=== PATIENT | female | born 1975 | race African-American/Black ===

== ENCOUNTER 2017-08-05 12:34 | Observation (INO) ==
[2017-08-05 14:45] LABS: Basophils % 0.3 %; Eosinophils % 0.6 %; Hematocrit 46.5 % (35.3-44.9); Hemoglobin 15.1 g/dL (11.5-15.4); Immature Granulocytes % 0.2 % (0-4); Lymphocytes # 0.7 K/mcL (0.6-4.6); Mean Corpuscular HGB Conc 32.5 g/dL (31.6-35.5); Mean Corpuscular Hemoglobin 30.1 pg (28.0-33.3); Mean Corpuscular Volume 92.6 fL (83.0-100.0); Mean Platelet Volume 8.8 fL (9.4-12.4); Monocytes # 0.4 K/mcL (0.0-1.3); Monocytes % 6.3 %; Platelet Count 282 K/mcL (140-400); Red Blood Count 5.02 M/mcL (3.82-4.97); Red Cell Distribution Width 12.2 % (11.5-14.5); Segmented Neutrophils % 80.6 %
[2017-08-05 14:50] LABS: Prothrombin Time 10.2 Seconds (9.4-12.1)
[2017-08-05 14:52] LABS: Activated Partial Thrombo Time 28.8 Seconds (26.0-36.0)
[2017-08-05 15:05] LABS: BUN/Creatinine Ratio 18 (6-26); Blood Urea Nitrogen 13 mg/dL (6-20); Calcium 9.2 mg/dL (8.6-10.3); Carbon Dioxide 26 mEq/L (23-29); Chloride 106 mEq/L (98-107); Glucose 90 mg/dL (70-105); Osmolality,Calculated 280 (280-300); Potassium 3.9 mEq/L (3.5-5.1); Sodium 135 mEq/L (136-145); eGFR For African Americans > 60 (> 60); eGFR For Non-African Americans > 60 (> 60)
--- NOTE | 2017-08-05 15:12 | Emergency Department Note ---
Disposition Clinical Impression: Unstable angina Disposition: Admitted As Inpatient Condition: Fair General Adult HPI - General Chief complaint: ED Chest Pain Stated complaint: C/P Time Seen by Provider: 08/05/17 15:01 Source: patient Limitations: no limitations - History of Present Illness Pain Scale: 5 - Related Data Home Medications Medication Instructions Recorded Confirmed hydrOXYzine HCl [Hydroxyzine HCl] 25 mg PO HS PRN 08/05/17 08/05/17 Allergies Allergy/AdvReac Type Severity Reaction Status Date / Time Amoxicillin AdvReac Hives Verified 08/05/17 12:40 Past Medical History - Past Medical History Medical history: Reports: no medical history Psychiatric history: Reports: no psych history - Social History Smoking Status: Current every day smoker Smokeless Tobacco Status: No Alcohol use: Reports: none Drug use: Reports: none Physical Exam - General Limitations: no limitations General appearance: alert, in no apparent distress Course Vital Signs Temperature 98.6 F 08/05/17 12:35 Pulse Rate 89 08/05/17 12:35 Respiratory Rate 18 08/05/17 12:35 Blood Pressure 119/73 08/05/17 12:35 O2 Sat by Pulse Oximetry 100 08/05/17 12:35 Temperature 98.8 F 08/05/17 20:30 Pulse Rate 90 08/05/17 20:30 Respiratory Rate 14 08/05/17 20:30 Blood Pressure 112/77 08/05/17 20:30 O2 Sat by Pulse Oximetry 96 08/05/17 20:30 Oxygen Delivery Oxygen Delivery Room Air Medical Decision Making - Lab Data Result diagrams: 08/05/17 14:33 08/05/17 14:33 Lab Results 08/05/17 08/05/17 08/05/17 Range/Units 14:33 14:33 14:33 WBC 6.2 (4.3-11.1) K/mcL RBC 5.02 H (3.82-4.97) M/mcL Hgb 15.1 (11.5-15.4) g/dL Hct 46.5 H (35.3-44.9) % MCV 92.6 (83.0-100.0) fL MCH 30.1 (28.0-33.3) pg MCHC 32.5 (31.6-35.5) g/dL RDW 12.2 (11.5-14.5) % Plt Count 282 (140-400) K/mcL MPV 8.8 L (9.4-12.4) fL Immature Gran % 0.2 (0-4) % Seg Neutrophils % 80.6 % Lymphocytes % 12.0 % Monocytes % 6.3 % Eosinophils % 0.6 % Basophils % 0.3 % Neutrophils # 5.0 (1.6-8.9) K/mcL Lymphocytes # 0.7 (0.6-4.6) K/mcL Monocytes # 0.4 (0.0-1.3) K/mcL Eosinophils # 0.0 (0.0-0.6) K/mcL Basophils # 0.0 (0.0-0.2) K/mcL PT 10.2 (9.4-12.1) Seconds INR 1.0 APTT 28.8 (26.0-36.0) Seconds Sodium 135 L (136-145) mEq/L Potassium 3.9 (3.5-5.1) mEq/L Chloride 106 (98-107) mEq/L Carbon Dioxide 26 (23-29) mEq/L BUN 13 (6-20) mg/dL Creatinine 0.73 (0.60-1.20) mg/dL Est GFR ( Amer) > 60 (> 60) Est GFR (Non-Af Amer) > 60 (> 60) BUN/Creatinine Ratio 18 (6-26) Glucose 90 (70-105) mg/dL Calculated Osmolality 280 (280-300) Calcium 9.2 (8.6-10.3) mg/dL Troponin I (< 0.04) ng/mL 08/05/17 Range/Units 14:33 WBC (4.3-11.1) K/mcL RBC (3.82-4.97) M/mcL Hgb (11.5-15.4) g/dL Hct (35.3-44.9) % MCV (83.0-100.0) fL MCH (28.0-33.3) pg MCHC (31.6-35.5) g/dL RDW (11.5-14.5) % Plt Count (140-400) K/mcL MPV (9.4-12.4) fL Immature Gran % (0-4) % Seg Neutrophils % % Lymphocytes % % Monocytes % % Eosinophils % % Basophils % % Neutrophils # (1.6-8.9) K/mcL Lymphocytes # (0.6-4.6) K/mcL Monocytes # (0.0-1.3) K/mcL Eosinophils # (0.0-0.6) K/mcL Basophils # (0.0-0.2) K/mcL PT (9.4-12.1) Seconds INR APTT (26.0-36.0) Seconds Sodium (136-145) mEq/L Potassium (3.5-5.1) mEq/L Chloride (98-107) mEq/L Carbon Dioxide (23-29) mEq/L BUN (6-20) mg/dL Creatinine (0.60-1.20) mg/dL Est GFR ( Amer) (> 60) Est GFR (Non-Af Amer) (> 60) BUN/Creatinine Ratio (6-26) Glucose (70-105) mg/dL Calculated Osmolality (280-300) Calcium (8.6-10.3) mg/dL Troponin I < 0.03 (< 0.04) ng/mL Attestation Statement - Attestation Attestation: I examined this patient and my medical decision-making was reviewed with the Resident Physician. I agree with the documented findings, disposition and treatment plan as described except to the extent set forth below. [id number] time provided in conjunction with the resident physician Dr. Maddox Patient arrives complaining of chest discomfort. She appears in no acute distress on exam. Labs and chest x-ray result reviewed by me. ECG has some nonspecific ST segment abnormalities including inverted T waves the patient has no studies for comparison
--- NOTE | 2017-08-05 15:41 | Emergency Department Note ---
Disposition Clinical Impression: Unstable angina Disposition: Admitted As Inpatient Condition: Fair Time of Disposition: 20:56 Chest Pain HPI - General Chief Complaint: ED Chest Pain Stated Complaint: C/P Time Seen by Provider: 08/05/17 15:01 Source: patient Limitations: no limitations Vital Signs Reviewed: Yes Nursing Notes Reviewed: Yes - History of Present Illness HPI Narrative: 42-year-old female complains of chest pain and started 4 hours ago. Patient states at 1130 hrs. while sitting in her recliner she had sudden onset of sharp chest pain left chest wall. Patient stated the pain lasted 30 minutes and then went away on its own. He states pain came back 2 hours later and continued up until she got to the emergency department. Patient states she has had some mild shortness of breath and pain but no diaphoresis rate or radiation of pain to her neck or arms. She did have radiation of pain to the right lateral chest wall. Patient denies any hemoptysis, hormone replacement therapy, any recent surgeries , prior history of DVT or any recent trauma. Patient denies a cardiac history. Severity scale (1-10): 4 - Related Data Home Medications Medication Instructions Recorded Confirmed hydrOXYzine HCl [Hydroxyzine HCl] 25 mg PO HS PRN 08/05/17 08/05/17 Allergies Allergy/AdvReac Type Severity Reaction Status Date / Time Amoxicillin AdvReac Hives Verified 08/05/17 12:40 All systems ED: reviewed and negative except as stated. Review of Systems: As Per HPI Constitutional: Denies: fever, chills, weakness ENT ED: Denies: congestion Cardiovascular: Reports: chest pain, palpitations Respiratory: Reports: dyspnea. Denies: cough, wheezes Gastrointestinal: Denies: abdominal pain, nausea, vomiting, diarrhea Chest Pain PMH - Past Medical History Medical history: Reports: no medical history Psychiatric history: Reports: no psych history - Social History Smoking Status: Current every day smoker Alcohol use: Reports: none Drug use: Reports: none Physical Exam Vital Signs Temperature 98.6 F 08/05/17 12:35 Pulse Rate 89 08/05/17 12:35 Respiratory Rate 18 08/05/17 12:35 Blood Pressure 119/73 08/05/17 12:35 O2 Sat by Pulse Oximetry 100 08/05/17 12:35 Temperature 98.6 F 08/05/17 12:35 Pulse Rate 95 08/05/17 15:15 Respiratory Rate 16 08/05/17 15:15 Blood Pressure 122/85 08/05/17 15:15 O2 Sat by Pulse Oximetry 96 08/05/17 15:15 Oxygen Delivery Oxygen Delivery Room Air CONSTITUTIONAL: Well-appearing; well-nourished; A&O X 3, in no apparent distress HEAD: Normocephalic; atraumatic EYES: PERRL, no scleral icterus NOSE: The nose is normal in appearance without rhinorrhea NECK: No JVD or distended neck veins RESP: Normal chest excursion with respiration; breath sounds clear and equal bilaterally; no wheezes, rhonchi, or rales CARD: Regular rhythm, without murmurs, rub or gallop ABD: Non-distended; non-tender, soft, without rigidity, rebound or guarding,no pulsatile mass CHEST: No pain with palpation SKIN: Normal for age and race; warm and dry without diaphoresis ; no apparent lesions EXTREMITIES: Pulses are 2 plus and equal times 4 extremities, no peripheral edema or calf muscle pain - General Limitations: no limitations General appearance: alert, in no apparent distress Course Vital Signs Temperature 98.6 F 08/05/17 12:35 Pulse Rate 89 08/05/17 12:35 Respiratory Rate 18 08/05/17 12:35 Blood Pressure 119/73 08/05/17 12:35 O2 Sat by Pulse Oximetry 100 08/05/17 12:35 Temperature 98.8 F 08/05/17 20:30 Pulse Rate 90 08/05/17 20:30 Respiratory Rate 14 08/05/17 20:30 Blood Pressure 112/77 08/05/17 20:30 O2 Sat by Pulse Oximetry 96 08/05/17 20:30 Oxygen Delivery Oxygen Delivery Room Air Chest Pain - MDM Narrative Medical decision making narrative: Patient's recent history of chest pain is concerning for unstable angina, ACS/DC , PE (PERC negative: No pain or swelling of the lower extremities, casts or splints of the lower extremities, prolonged immobilization or lower extremity injury. No history of cancer, hemoptysis, hormone therapy, blood clotting problems or recent surgery). Patient has no prior cardiac workups. Patient has EKG abdomen abnormalities for T-wave inversion across all leads and no previous EKG for comparison. Patient's chest x-ray and labs are unremarkable for abnormalities. He is a smoker but has no other known risk factors at this time. Patient has a heart score of 3 Patient's currently not in any pain and is doing well. Patient accepts this is for admission for trending of troponins and cardiac evaluation. Dr. Sandoval the hospitalist who accepted the patient for admission in stable condition to a telemetry bed at 1550 hrs. - Lab Data Lab results reviewed: Yes I reviewed the patient's lab results. Lab results narrative: Short CBC 08/05/17 Range/Units 14:33 WBC 6.2 (4.3-11.1) K/mcL Hgb 15.1 (11.5-15.4) g/dL Hct 46.5 H (35.3-44.9) % Plt Count 282 (140-400) K/mcL Neutrophils # 5.0 (1.6-8.9) K/mcL BMP 08/05/17 Range/Units 14:33 Sodium 135 L (136-145) mEq/L Potassium 3.9 (3.5-5.1) mEq/L Chloride 106 (98-107) mEq/L Carbon Dioxide 26 (23-29) mEq/L BUN 13 (6-20) mg/dL Creatinine 0.73 (0.60-1.20) mg/dL Glucose 90 (70-105) mg/dL Calcium 9.2 (8.6-10.3) mg/dL Cardiac Enzymes 08/05/17 Range/Units 14:33 Troponin I < 0.03 (< 0.04) ng/mL Result diagrams: 08/05/17 14:33 08/05/17 14:33 Lab Results 08/05/17 08/05/17 08/05/17 Range/Units 14:33 14:33 14:33 WBC 6.2 (4.3-11.1) K/mcL RBC 5.02 H (3.82-4.97) M/mcL Hgb 15.1 (11.5-15.4) g/dL Hct 46.5 H (35.3-44.9) % MCV 92.6 (83.0-100.0) fL MCH 30.1 (28.0-33.3) pg MCHC 32.5 (31.6-35.5) g/dL RDW 12.2 (11.5-14.5) % Plt Count 282 (140-400) K/mcL MPV 8.8 L (9.4-12.4) fL Immature Gran % 0.2 (0-4) % Seg Neutrophils % 80.6 % Lymphocytes % 12.0 % Monocytes % 6.3 % Eosinophils % 0.6 % Basophils % 0.3 % Neutrophils # 5.0 (1.6-8.9) K/mcL Lymphocytes # 0.7 (0.6-4.6) K/mcL Monocytes # 0.4 (0.0-1.3) K/mcL Eosinophils # 0.0 (0.0-0.6) K/mcL Basophils # 0.0 (0.0-0.2) K/mcL PT 10.2 (9.4-12.1) Seconds INR 1.0 APTT 28.8 (26.0-36.0) Seconds Sodium 135 L (136-145) mEq/L Potassium 3.9 (3.5-5.1) mEq/L Chloride 106 (98-107) mEq/L Carbon Dioxide 26 (23-29) mEq/L BUN 13 (6-20) mg/dL Creatinine 0.73 (0.60-1.20) mg/dL Est GFR ( Amer) > 60 (> 60) Est GFR (Non-Af Amer) > 60 (> 60) BUN/Creatinine Ratio 18 (6-26) Glucose 90 (70-105) mg/dL Calculated Osmolality 280 (280-300) Calcium 9.2 (8.6-10.3) mg/dL Troponin I (< 0.04) ng/mL 08/05/17 Range/Units 14:33 WBC (4.3-11.1) K/mcL RBC (3.82-4.97) M/mcL Hgb (11.5-15.4) g/dL Hct (35.3-44.9) % MCV (83.0-100.0) fL MCH (28.0-33.3) pg MCHC (31.6-35.5) g/dL RDW (11.5-14.5) % Plt Count (140-400) K/mcL MPV (9.4-12.4) fL Immature Gran % (0-4) % Seg Neutrophils % % Lymphocytes % % Monocytes % % Eosinophils % % Basophils % % Neutrophils # (1.6-8.9) K/mcL Lymphocytes # (0.6-4.6) K/mcL Monocytes # (0.0-1.3) K/mcL Eosinophils # (0.0-0.6) K/mcL Basophils # (0.0-0.2) K/mcL PT (9.4-12.1) Seconds INR APTT (26.0-36.0) Seconds Sodium (136-145) mEq/L Potassium (3.5-5.1) mEq/L Chloride (98-107) mEq/L Carbon Dioxide (23-29) mEq/L BUN (6-20) mg/dL Creatinine (0.60-1.20) mg/dL Est GFR ( Amer) (> 60) Est GFR (Non-Af Amer) (> 60) BUN/Creatinine Ratio (6-26) Glucose (70-105) mg/dL Calculated Osmolality (280-300) Calcium (8.6-10.3) mg/dL Troponin I < 0.03 (< 0.04) ng/mL - Radiology Data Radiology results reviewed: Yes I reviewed the patient's radiology results. Chest X-Ray 08/05/17 12:40 IMPRESSION: No acute cardiopulmonary disease. D/ / Gurvinder Silva MD / Gurvinder Silva MD Interpreting Provider: Gurvinder Silva MD - EKG Data EKG attestation: Yes I reviewed and interpreted this EKG. EKG results narrative: EKG taken 08/05/2017 at 1241 hrs. shows sinus rhythm at a rate of 93 beats minute with T-wave inversions across all leads. No acute ST elevations or depressions in any leads, no QS widening or QT prolongation and no previous ekg for comparison. Heart Score - Score History: Moderately Suspicious EKG: Non Specific repolarisation Disturbance Age: Less than 45 Risk Factors: 1-2 risk factors Troponin: Less than normal limit HEART Score Total: 3
[2017-08-05] MEDS ORDERED: Naloxone 0.4 MG/ML INJ IVP PRN (16:19)
[2017-08-05] MEDS ORDERED: Aspirin 325 MG TABLET PO ONE (16:21)
[2017-08-05] MEDS ORDERED: Nitroglycerin 0.4 MG TAB.SUBL SL PRN (16:22)
[2017-08-05] MEDS ORDERED: hydrOXYzine pamoate 25 MG CAPSULE PO PRN (16:23)
--- NOTE | 2017-08-05 16:39 | Internal Med History&Physical ---
Date of Encounter: 08/05/17 Time of Encounter: 16:34 Assessment and Plan (1) Chest pain Current visit: Yes Status: Acute Resolved at this time will obtain serial TNI 2D echo to rule out WMA given history of drug abuse HEART score: 1 (smoker) nuclear stress test in am NPO after midnight tele monitoring ASA, Lipitor (to be given in the ER) nitroglycerin SL Prn chest pain f/u lipid panel f/u urine tox screen Qualifiers: Chest pain type: unspecified Qualified Code(s): R07.9 - Chest pain, unspecified (2) Polysubstance abuse Current visit: Yes Status: Chronic pt reports of being in remission for the last five months states she was in a recovery home at the time of onset of chest pain denies any recent heroin or cocaine use will obtain urine tox screen (3) Tobacco abuse Current visit: Yes Status: Chronic smoking cessation counseling provided pt not ready to quit nicotine supplementation provided (4) DVT prophylaxis Current visit: Yes Status: Acute heparin SQ Internal Medicine - H&P: HPI Chief complaint: chest pain Admitted From: Home Plans for Post Hospital Care: Home History of present illness: Ms. Herzog is a 42 year old female with PMH of tobacco abuse and polysubstance abuse (heroin and cocaine-currently in recovery) presented to the ER for acute onset localized substernal sharp chest pain. Pt states she was resting in chair when the pain came about and she is currently in a recovery program for addiction (hx of heroin and cocaine abuse). The persisted for 30 minutes which prompted her visit to the ER. She denied any alleviating or exacerbating factors. Reports of the pain spontaneously resolving upon her arrival to the ER. At this time she is resting in bed and denies any pain, sob, or discomfort. She denied any family history of heart disease. Past Med Surg Social Fam HX - Past Medical History Medical history: no medical history Psychiatric history: no psych history - Social History Smoking Status: Current every day smoker Smokeless Tobacco Status: No Alcohol use: none Drug use: none Internal Medicine - H&P: Meds hydrOXYzine HCl [Hydroxyzine HCl] 25 mg PO HS PRN 08/05/17 [History] 3 Allergy/AdvReac Type Severity Reaction Status Date / Time Amoxicillin AdvReac Hives Verified 08/05/17 12:40 All Systems PM: A 10-system review of systems was performed and is negative for pertinent findings except as documented above in the HPI. - Constitutional Constitutional: as per HPI - Constitutional Vitals: Temp Pulse Resp BP Pulse Ox 98.6 F 95 16 122/85 96 08/05/17 12:35 08/05/17 15:15 08/05/17 15:15 08/05/17 15:15 08/05/17 15:15 General appearance: Present: A&O X 3, no acute distress, answers questions appropriately - Head Head exam: Present: atraumatic, normocephalic - Eye Eye exam: Present: conjuntiva pink, sclera anicteric - Respiratory Respiratory exam: Present: CTAB. Absent: accessory muscle use, rales, rhonchi, wheezes - Cardiovascular Cardiovascular exam: Present: RRR, +S1, +S2. Absent: diastolic murmur, gallop, rubs, systolic murmur - GI/Abdominal GI/Abdominal exam: Present: normal bowel sounds, soft, no peritoneal signs. Absent: distended, tenderness - Extremities Exam Extremities exam: Present: warm, radial pulses palpable and symmetrical. Absent : calf tenderness, cyanotic, pedal edema - Neurological Exam Neurological exam: Present: alert, oriented X3 - Psychiatric Psychiatric exam: Present: normal affect, normal mood Internal Med - H&P Results - Labs CBC & Chem 7: 08/05/17 14:33 08/05/17 14:33
[2017-08-05] MEDS ORDERED: Acetaminophen 325 MG TABLET PO PRN (16:40)
[2017-08-05] MEDS: *HR* Heparin 5,000 UNIT/ML VIAL SQ SCH (18:29)
[2017-08-05] MEDS: Nicotine 14 MG PATCH.TD24 TD SCH (18:29)
[2017-08-05] MEDS ORDERED: Perflutren Lipid Microsphere 1.3 ML in 0.9 % Sodium Chloride 8.7 ML IVP ONE (19:14)
[2017-08-05 21:47] LABS: Amphetamine Screen,Urine Negative ng/mL (Cutoff=1000); Barbiturate Screen,Urine Negative ng/mL (Cutoff=200); Benzodiazepines Screen,Urine Negative ng/mL (Cutoff=200); Cannabinoid Screen,Urine Negative ng/mL (Cutoff = 50); Cocaine Screen,Urine Negative ng/mL (Cutoff= 300); Opiate Screen,Urine Negative ng/mL (Cutoff=300); Phencyclidine Screen,Urine Negative ng/mL (Cutoff=25)
[2017-08-06] MEDS: *HR* Heparin 5,000 UNIT/ML VIAL SQ SCH (05:30)
[2017-08-06 05:31] LABS: Basophils % 0.8 %; Eosinophils % 0.5 %; Hematocrit 41.7 % (35.3-44.9); Hemoglobin 13.7 g/dL (11.5-15.4); Immature Granulocytes % 0.3 % (0-4); Lymphocytes # 0.7 K/mcL (0.6-4.6); Lymphocytes % 18.4 %; Mean Corpuscular HGB Conc 32.9 g/dL (31.6-35.5); Mean Corpuscular Volume 91.4 fL (83.0-100.0); Mean Platelet Volume 9.6 fL (9.4-12.4); Monocytes # 0.5 K/mcL (0.0-1.3); Monocytes % 13.8 %; Neutrophils # 2.6 K/mcL (1.6-8.9); Nucleated Red Blood Cells 0.8 /100 WBC (0); Platelet Count 243 K/mcL (140-400); Red Blood Count 4.56 M/mcL (3.82-4.97); Red Cell Distribution Width 12.3 % (11.5-14.5); Segmented Neutrophils % 66.2 %
[2017-08-06 05:32] LABS: BUN/Creatinine Ratio 20 (6-26); Blood Urea Nitrogen 13 mg/dL (6-20); Calcium 8.7 mg/dL (8.6-10.3); Carbon Dioxide 23 mEq/L (23-29); Chloride 110 mEq/L (98-107); Chol/HDL Ratio 3.5 (0-4.9); Cholesterol 167 mg/dL (< 200); Glucose 90 mg/dL (70-105); HDL Cholesterol 48 mg/dL (40-59); LDL Cholesterol,Calculated 100 mg/dL (0-99); Osmolality,Calculated 282 (280-300); Phosphorous 3.6 mg/dL (2.7-4.5); Potassium 3.6 mEq/L (3.5-5.1); Sodium 136 mEq/L (136-145); Triglycerides 95 mg/dL (< 150); eGFR For African Americans > 60 (> 60); eGFR For Non-African Americans > 60 (> 60)
[2017-08-06] MEDS ORDERED: Regadenoson 0.4 MG/5 ML SYRINGE IVP ONE (06:10)
--- NOTE | 2017-08-06 06:46 | Electrocardiograph Report ---
[facility] Test Date: 2017-08-05 Pat Name: Michelle Herzog Department: 104 Room: 3B36 Gender: F [employer] Grade Teacher: : 1975 Requested By: Eliud Mckeon Order Number: [id number] Reading MD: Sami Camacho MD Measurements Intervals [place] Rate: 93 P: 62 MO: 142 QRS: 32 QRSD: 89 T: -64 QT: 362 QTc: 413 Interpretive Statements SINUS RHYTHM WITH OCCASIONAL VENTRICULAR PREMATURE COMPLEXES ST DEVIATION AND MODERATE T-WAVE ABNORMALITY, CONSIDER ANTEROLATERAL ISCHEMIA ST DEVIATION AND MODERATE T-WAVE ABNORMALITY, CONSIDER INFERIOR ISCHEMIA Electronically Signed On 08-06-2017 6:44:47 EST by Sami Camacho MD
[2017-08-06] MEDS: Nicotine 14 MG PATCH.TD24 TD SCH (09:31)
[2017-08-06 11:41] VITALS: BP 111/73
--- NOTE | 2017-08-06 15:21 | Discharge Summary ---
Date of Encounter: 08/06/17 Time of Encounter: 15:18 - Discharge Diagnosis (1) Chest pain Priority: Primary Status: Resolved Qualifiers: Chest pain type: unspecified Qualified Code(s): R07.9 - Chest pain, unspecified (2) Polysubstance abuse Priority: Secondary Status: Chronic (3) Tobacco abuse Priority: Secondary Status: Chronic (4) DVT prophylaxis Priority: Secondary Status: Acute - Discharge Medications Home Medications: hydrOXYzine HCl [Hydroxyzine HCl] 25 mg PO HS PRN 08/05/17 [History] Allergies/Adverse Reactions: 3 Allergy/AdvReac Type Severity Reaction Status Date / Time Amoxicillin AdvReac Hives Verified 08/05/17 12:40 Procedures/tests Complete & Pending: Procedures Performed prior 72 hours Category Date Time Status NM jenna perf SPECT multi [NM] Routine Exams 08/05/17 16:23 Taken EV echocardiogram w enhance Stat Y 08/05/17 16:34 Completed SP pharm nuclear stress Routine Y 08/05/17 16:23 Completed Date of admission: 08/05/17 16:09 Primary care physician: Edgar Aguilera MD Discharging clinician: Aury Sanches Anticipated date of discharge: 08/06/17 - Patient Status Disposition: Home, Self-Care Condition: Good Functional capacity at discharge: independent ambulation Overall status at discharge: patient is back to baseline - Discharge Instructions Follow Up With: Edgar Aguilera MD [Primary Care Provider] - 08/12/17 11:00 am Additional Instructions: Please follow up with primary care physician within one week after your discharge from the hospital. Please follow up with cardiology within one to two weeks after your discharge from the hospital. Resume all your home meds as prescribed by your primary care physician. - Diet and Activity Activity: resume usual activities as tolerated Diet: advance to your usual diet Hospital course: Ms. Herzog is a 42 year old female with PMH Of tobacco abuse and polysubstance abuse (heroin and cocaine-currently in recovery) admitted for chest pain. She underwent nuclear stress test which was negative for ischemic perfusion defect. She had a 2D echo which reported mild TR mild to moderate pulm regurgitation consistent with her history of drug abuse. Pt denies any chest pain or any discomfort at this time. She is stable for discharge with outpatient follow up with PCP and cardiology. Pt demonstrates understanding of her diagnosis and agrees with the discharge care and plan. - Time Spent with Patient Total time spent providing and/or coordinating discharge services: Less than 30 minutes - Constitutional Vitals: Temp Pulse Resp BP Pulse Ox 98.2 F 58 18 111/73 94 08/06/17 11:39 08/06/17 11:39 08/06/17 11:39 08/06/17 11:39 08/06/17 11:39 General appearance: Present: A&O X 3, no acute distress, answers questions appropriately - Head Head exam: Present: atraumatic, normocephalic - Eye Eye exam: Present: conjuntiva pink, sclera anicteric - Respiratory Respiratory exam: Present: CTAB. Absent: accessory muscle use, rales, rhonchi, wheezes - Cardiovascular Cardiovascular exam: Present: RRR, +S1, +S2. Absent: diastolic murmur, gallop, rubs, systolic murmur - GI/Abdominal GI/Abdominal exam: Present: normal bowel sounds, soft, no peritoneal signs. Absent: distended, tenderness - Extremities Exam Extremities exam: Present: warm, radial pulses palpable and symmetrical. Absent : calf tenderness, cyanotic, pedal edema - Neurological Exam Neurological exam: Present: alert, oriented X3 - Psychiatric Psychiatric exam: Present: normal affect, normal mood
== END 2017-08-06 18:17 | disposition home or self-care (01) ==
LOC: 3BNU 12:34 → EMEROO 12:34 → 3BNU 16:59
PROVIDERS: ADMIT Registered Nurse; ATTEND Registered Nurse

== ENCOUNTER 2017-10-24 10:41 | Observation (INO) ==
[2017-10-24] MEDS ORDERED: Aspirin 81 MG TAB.CHEW PO ONE (11:10)
--- NOTE | 2017-10-24 11:51 | Emergency Department Note ---
Disposition Clinical Impression: Acute electrocardiogram changes, Weakness Disposition: Admitted As Inpatient Condition: Good Referrals: Edgar Aguilera MD [Primary Care Provider] - Time of Disposition: 13:18 General Adult HPI - General Chief complaint: ED Dizziness Stated complaint: "shakes,blurry vision" Time Seen by Provider: 10/24/17 11:00 Source: patient Limitations: no limitations Nursing Notes Reviewed: Yes Vital Signs Reviewed: Yes - History of Present Illness HPI Narrative: Mrs. Martinez, 42-year-old female, presents from home for evaluation of dizziness and intermittent blurred vision. Onset just prior to arrival. Now resolved. She notes that this is happened previously and, at that time, was related to her hypertension and she was started on antihypertensive. PMH: Hypertension Ms.: Current every day smoker ROS: Positive: As above Negative: Fever, chills, nausea, vomiting, fall, chest pain, palpitations, dyspnea, diaphoresis, unusual back pains, abdominal pains, weakness, numbness, tingling Pain Scale: 0 - Related Data Home Medications Medication Instructions Recorded Confirmed hydrOXYzine HCl [Hydroxyzine HCl] 25 mg PO HS PRN 08/05/17 08/05/17 Metoprolol [Lopressor] 25 mg PO BID 10/24/17 10/24/17 Allergies Allergy/AdvReac Type Severity Reaction Status Date / Time Amoxicillin AdvReac Hives Verified 08/05/17 12:40 All systems ED: reviewed and negative except as stated. Review of Systems: As Per HPI Past Medical History - Past Medical History Medical history: Reports: non-contributory, hypertension Psychiatric history: Reports: no psych history - Social History Smoking Status: Current every day smoker Smokeless Tobacco Status: No Alcohol use: Reports: none Drug use: Reports: none Physical Exam Vital Signs Reviewed General: Patient is alert, oriented, and in no acute distress. Head: atraumatic, normocephalic Eye: normal appearance, no scleral icterus, no conjunctival injection ENT: mucous membranes moist, normal external ear exam Neck: normal inspection, trachea midline, full ROM Chest: normal inspection, symmetric chest rise Respiratory: Good respiratory effort. Bilateral breath sounds are clear without wheezing, crackles, or rhonchi. Cardiovascular: Regular rate and rhythm. No clicks, rubs, gallops, or murmors. Normal heart sounds. Abdomen: Bowel sounds present normoactive x-4 quadrants. Abdomen is soft, nondistended, and nontender. No guarding or rebound. No organomegaly noted. Musculoskeletal: Spontaneously moving all extremities. Skin: warm, dry, intact. Neuro: Alert and oriented x4. Sensation light touch intact. Psych: Patient's affect is appropriate for situation. - General Limitations: no limitations General appearance: alert, in no apparent distress Course Course Narrative: Patient has not had any shakiness or weakness while the emergency department. EKG #1 12-lead EKG with patient reclined dated 10/24/17 at 10:55 interpreted as sinus bradycardia with a rate of 15. Abnormal intervals. Normal axis. T-wave inversion in leads 3 and aVF. 1-[address] depression in precordial leads with accompanied T-wave inversions. These are new compared to previous EKG dated 10/2017. EKG #2 Posterior EKG with patient reclined dated 10/24/17 at 11:02 interpreted as sinus bradycardia with a rate of 56. T-wave inversions in leads 3 and aVF. [address] depression precordial leads with accompanied T-wave inversions. EKG #3 Posterior EKG with patient supine dated 10/24/2017 at 11:21 interpreted as sinus rhythm with a rate of 62. T-wave inversions in leads 3 and aVF with mild ST depression with accompanied T waves in precordial leads. EKG #4 12-lead EKG with patient in supine position dated 10/24/17 at 11:25 interpreted as sinus bradycardia with a rate of 56. T-wave inversions in leads 3 and aVF. T-wave inversions with ST depression in precordial leads. I discussed the progressive EKG changes with Dr. Wilburn who does not recommend catheterization at this time. I discussed my concern for her EKG changes with the patient. She is unable to admission for rule out ACS. Troponin is normal. Patient has acute kidney injury. CT head is unremarkable. Chest x-ray read per radiology as CHF. Patient has no crackles or evidence of fluid overload. On my evaluation of chest x-ray there is vascular congestion however costophrenic angles are sharp. Will hold on Lasix in the emergency department at this time. I discussed the patient with the admitting hospitalist, Dr. gonzales, who agrees to accept the patient for EKG changes related ACS. Chest X-Ray 10/24/17 11:10 IMPRESSION: Findings suggest congestive heart failure D/ / Samuel Mcmlulen MD / Samuel Mcmullen MD Interpreting Provider: Samuel Mcmullen MD Head CT 10/24/17 11:58 IMPRESSION: No acute intracranial abnormality. D/ / Alex Dunn MD / Alex Dunn MD Interpreting Provider: Alex Dunn MD Vital Signs Temperature 98.2 F 10/24/17 11:00 Pulse Rate 64 10/24/17 11:00 Respiratory Rate 18 10/24/17 11:00 Blood Pressure 119/64 10/24/17 11:00 O2 Sat by Pulse Oximetry 96 10/24/17 11:00 Temperature 98.2 F 10/24/17 11:00 Pulse Rate 68 10/24/17 12:00 Respiratory Rate 18 10/24/17 12:00 Blood Pressure 112/68 10/24/17 12:00 O2 Sat by Pulse Oximetry 96 10/24/17 12:00 Oxygen Delivery Oxygen Delivery Room Air Medical Decision Making - Lab Data Result diagrams: 10/24/17 11:20 10/24/17 11:20 Lab Results 10/24/17 10/24/17 10/24/17 Range/Units 11:10 11:12 11:20 WBC 5.2 (4.3-11.1) K/mcL RBC 4.75 (3.82-4.97) M/mcL Hgb 14.4 (11.5-15.4) g/dL Hct 43.3 (35.3-44.9) % MCV 91.2 (83.0-100.0) fL MCH 30.3 (28.0-33.3) pg MCHC 33.3 (31.6-35.5) g/dL RDW 13.1 (11.5-14.5) % Plt Count 293 (140-400) K/mcL MPV 9.5 (9.4-12.4) fL Immature Gran % 0.2 (0-4) % Seg Neutrophils % 51.1 % Lymphocytes % 38.5 % Monocytes % 8.5 % Eosinophils % 1.3 % Basophils % 0.4 % Neutrophils # 2.7 (1.6-8.9) K/mcL Lymphocytes # 2.0 (0.6-4.6) K/mcL Monocytes # 0.4 (0.0-1.3) K/mcL Eosinophils # 0.1 (0.0-0.6) K/mcL Basophils # 0.0 (0.0-0.2) K/mcL Nucleated RBCs/100 WBC 0.4 H (0) /100 WBC PT 10.4 (9.4-12.1) Seconds INR 1.0 APTT 29.5 (26.0-36.0) Seconds Sodium (136-145) mEq/L Potassium (3.5-5.1) mEq/L Chloride (98-107) mEq/L Carbon Dioxide (23-29) mEq/L BUN (6-20) mg/dL Creatinine (0.60-1.20) mg/dL Est GFR ( Amer) (> 60) Est GFR (Non-Af Amer) (> 60) BUN/Creatinine Ratio (6-26) Glucose (70-105) mg/dL Calculated Osmolality (280-300) Calcium (8.6-10.3) mg/dL Troponin I (< 0.04) ng/mL B-Natriuretic Peptide 40 (Less than 100) pg/mL TSH (0.340-5.600) mcIU/mL 10/24/17 Range/Units 11:20 WBC (4.3-11.1) K/mcL RBC (3.82-4.97) M/mcL Hgb (11.5-15.4) g/dL Hct (35.3-44.9) % MCV (83.0-100.0) fL MCH (28.0-33.3) pg MCHC (31.6-35.5) g/dL RDW (11.5-14.5) % Plt Count (140-400) K/mcL MPV (9.4-12.4) fL Immature Gran % (0-4) % Seg Neutrophils % % Lymphocytes % % Monocytes % % Eosinophils % % Basophils % % Neutrophils # (1.6-8.9) K/mcL Lymphocytes # (0.6-4.6) K/mcL Monocytes # (0.0-1.3) K/mcL Eosinophils # (0.0-0.6) K/mcL Basophils # (0.0-0.2) K/mcL Nucleated RBCs/100 WBC (0) /100 WBC PT (9.4-12.1) Seconds INR APTT (26.0-36.0) Seconds Sodium 139 (136-145) mEq/L Potassium 3.8 (3.5-5.1) mEq/L Chloride 108 H (98-107) mEq/L Carbon Dioxide 24 (23-29) mEq/L BUN 12 (6-20) mg/dL Creatinine 1.21 H (0.60-1.20) mg/dL Est GFR ( Amer) 59 L (> 60) Est GFR (Non-Af Amer) 49 L (> 60) BUN/Creatinine Ratio 10 (6-26) Glucose 107 H (70-105) mg/dL Calculated Osmolality 288 (280-300) Calcium 9.3 (8.6-10.3) mg/dL Troponin I < 0.03 (< 0.04) ng/mL B-Natriuretic Peptide (Less than 100) pg/mL TSH 1.141 (0.340-5.600) mcIU/mL Attestation Statement - Attestation Attestation: I, Joseph Arias DO, examined this patient [id number] and my medical decision-making was reviewed withDr. Oskar Chacon, Resident Physician. I agree with the documented findings, disposition and treatment plan as described except to the extent set forth below. Please see my progress notes for details.
[2017-10-24 12:02] LABS: Basophils % 0.4 %; Eosinophils # 0.1 K/mcL (0.0-0.6); Eosinophils % 1.3 %; Hematocrit 43.3 % (35.3-44.9); Hemoglobin 14.4 g/dL (11.5-15.4); Immature Granulocytes % 0.2 % (0-4); Lymphocytes % 38.5 %; Mean Corpuscular HGB Conc 33.3 g/dL (31.6-35.5); Mean Corpuscular Hemoglobin 30.3 pg (28.0-33.3); Mean Corpuscular Volume 91.2 fL (83.0-100.0); Mean Platelet Volume 9.5 fL (9.4-12.4); Monocytes # 0.4 K/mcL (0.0-1.3); Monocytes % 8.5 %; Neutrophils # 2.7 K/mcL (1.6-8.9); Nucleated Red Blood Cells 0.4 /100 WBC (0); Platelet Count 293 K/mcL (140-400); Red Blood Count 4.75 M/mcL (3.82-4.97); Red Cell Distribution Width 13.1 % (11.5-14.5); Segmented Neutrophils % 51.1 %
[2017-10-24 12:03] LABS: Troponin I < 0.03 ng/mL (< 0.04)
[2017-10-24 12:06] LABS: Prothrombin Time 10.4 Seconds (9.4-12.1)
[2017-10-24 12:08] LABS: BUN/Creatinine Ratio 10 (6-26); Blood Urea Nitrogen 12 mg/dL (6-20); Calcium 9.3 mg/dL (8.6-10.3); Carbon Dioxide 24 mEq/L (23-29); Chloride 108 mEq/L (98-107); Glucose 107 mg/dL (70-105); Osmolality,Calculated 288 (280-300); Potassium 3.8 mEq/L (3.5-5.1); Sodium 139 mEq/L (136-145); eGFR For African Americans 59 (> 60); eGFR For Non-African Americans 49 (> 60)
[2017-10-24 12:09] LABS: Activated Partial Thrombo Time 29.5 Seconds (26.0-36.0)
[2017-10-24 12:33] LABS: Thyroid Stimulating Hormone 1.141 mcIU/mL (0.340-5.600)
--- NOTE | 2017-10-24 13:00 | Emergency Department Note ---
Disposition Clinical Impression: Abnormal EKG, Occasional tremors Disposition: Admitted As Inpatient Condition: Fair Referrals: Edgar Aguilera MD [Primary Care Provider] - Time of Disposition: 13:03 General Adult HPI - General Chief complaint: ED Dizziness Stated complaint: "shakes,blurry vision" Time Seen by Provider: 10/24/17 11:00 Source: patient Limitations: no limitations - History of Present Illness Pain Scale: 0 - Related Data Home Medications Medication Instructions Recorded Confirmed hydrOXYzine HCl [Hydroxyzine HCl] 25 mg PO HS PRN 08/05/17 10/24/17 Metoprolol [Lopressor] 25 mg PO BID 10/24/17 10/24/17 Allergies Allergy/AdvReac Type Severity Reaction Status Date / Time Amoxicillin AdvReac Hives Verified 08/05/17 12:40 Past Medical History - Past Medical History Medical history: Reports: non-contributory, hypertension Psychiatric history: Reports: no psych history - Social History Smoking Status: Current every day smoker Smokeless Tobacco Status: No Alcohol use: Reports: none Drug use: Reports: none Physical Exam - General Limitations: no limitations General appearance: alert, in no apparent distress Course Vital Signs Temperature 98.2 F 10/24/17 11:00 Pulse Rate 64 10/24/17 11:00 Respiratory Rate 18 10/24/17 11:00 Blood Pressure 119/64 10/24/17 11:00 O2 Sat by Pulse Oximetry 96 10/24/17 11:00 Temperature 98.2 F 10/24/17 11:00 Pulse Rate 68 10/24/17 12:00 Respiratory Rate 18 10/24/17 12:00 Blood Pressure 112/68 10/24/17 12:00 O2 Sat by Pulse Oximetry 96 10/24/17 12:00 Oxygen Delivery Oxygen Delivery Room Air Medical Decision Making - Lab Data Result diagrams: 10/24/17 11:20 10/24/17 11:20 Lab Results 10/24/17 10/24/17 10/24/17 Range/Units 11:10 11:12 11:20 WBC 5.2 (4.3-11.1) K/mcL RBC 4.75 (3.82-4.97) M/mcL Hgb 14.4 (11.5-15.4) g/dL Hct 43.3 (35.3-44.9) % MCV 91.2 (83.0-100.0) fL MCH 30.3 (28.0-33.3) pg MCHC 33.3 (31.6-35.5) g/dL RDW 13.1 (11.5-14.5) % Plt Count 293 (140-400) K/mcL MPV 9.5 (9.4-12.4) fL Immature Gran % 0.2 (0-4) % Seg Neutrophils % 51.1 % Lymphocytes % 38.5 % Monocytes % 8.5 % Eosinophils % 1.3 % Basophils % 0.4 % Neutrophils # 2.7 (1.6-8.9) K/mcL Lymphocytes # 2.0 (0.6-4.6) K/mcL Monocytes # 0.4 (0.0-1.3) K/mcL Eosinophils # 0.1 (0.0-0.6) K/mcL Basophils # 0.0 (0.0-0.2) K/mcL Nucleated RBCs/100 WBC 0.4 H (0) /100 WBC PT 10.4 (9.4-12.1) Seconds INR 1.0 APTT 29.5 (26.0-36.0) Seconds Sodium (136-145) mEq/L Potassium (3.5-5.1) mEq/L Chloride (98-107) mEq/L Carbon Dioxide (23-29) mEq/L BUN (6-20) mg/dL Creatinine (0.60-1.20) mg/dL Est GFR ( Amer) (> 60) Est GFR (Non-Af Amer) (> 60) BUN/Creatinine Ratio (6-26) Glucose (70-105) mg/dL Calculated Osmolality (280-300) Calcium (8.6-10.3) mg/dL Troponin I (< 0.04) ng/mL B-Natriuretic Peptide 40 (Less than 100) pg/mL TSH (0.340-5.600) mcIU/mL 10/24/17 Range/Units 11:20 WBC (4.3-11.1) K/mcL RBC (3.82-4.97) M/mcL Hgb (11.5-15.4) g/dL Hct (35.3-44.9) % MCV (83.0-100.0) fL MCH (28.0-33.3) pg MCHC (31.6-35.5) g/dL RDW (11.5-14.5) % Plt Count (140-400) K/mcL MPV (9.4-12.4) fL Immature Gran % (0-4) % Seg Neutrophils % % Lymphocytes % % Monocytes % % Eosinophils % % Basophils % % Neutrophils # (1.6-8.9) K/mcL Lymphocytes # (0.6-4.6) K/mcL Monocytes # (0.0-1.3) K/mcL Eosinophils # (0.0-0.6) K/mcL Basophils # (0.0-0.2) K/mcL Nucleated RBCs/100 WBC (0) /100 WBC PT (9.4-12.1) Seconds INR APTT (26.0-36.0) Seconds Sodium 139 (136-145) mEq/L Potassium 3.8 (3.5-5.1) mEq/L Chloride 108 H (98-107) mEq/L Carbon Dioxide 24 (23-29) mEq/L BUN 12 (6-20) mg/dL Creatinine 1.21 H (0.60-1.20) mg/dL Est GFR ( Amer) 59 L (> 60) Est GFR (Non-Af Amer) 49 L (> 60) BUN/Creatinine Ratio 10 (6-26) Glucose 107 H (70-105) mg/dL Calculated Osmolality 288 (280-300) Calcium 9.3 (8.6-10.3) mg/dL Troponin I < 0.03 (< 0.04) ng/mL B-Natriuretic Peptide (Less than 100) pg/mL TSH 1.141 (0.340-5.600) mcIU/mL Attestation Statement - Attestation Attestation: I, Joseph Arias DO, examined this patient [id number] and my medical decision-making was reviewed with Dr. Oskar Chacon, Resident Physician. I agree with the documented findings, disposition and treatment plan as described except to the extent set forth below. Please see my progress notes for details. 42-year-old female presents to the emergency room with complaint of shakes and intermittent blurry vision. Patient has had a symptoms on and off for over a month. Patient was concerned because at approximately 10 AM this morning she started shaking again and her vision went blurry and it resolved. She denies some intermittent discomfort in her back. Patient has been seen and evaluated for cardiac related illness within the last month and an echo and stress test completed at that time. She does have valvular issues that are chronic. Patient denies being on any blood thinners at this time. Currently she is denying any symptoms. She has no chest pain no shortness of breath no headache no vision changes no nausea vomiting or diarrhea. No fevers or chills. She is 100% asymptomatic here in theYa Dari DO at this time. She was just concerned because of the presentation the symptoms and the length of the presenting issue today. On physical exam the patient is resting comfortably in the bed. Head is atraumatic pupils are equal and reactive extraocular muscles are intact. Oropharynx is patent trachea is midline. Lungs are clear to auscultation heart is regular. Abdomen is soft nontender nondistended with no guarding no rigidity no peritoneal-like symptoms. Patient moves all 4 of her extremities with purpose. She has no tremors no shaking noted on evaluation. She had no rashes or lesions. Patient denies any other symptoms at this point. She was concerned because of the presentation on May patient wanted to be evaluated. Patient has low clinical concern at this point for possible intracranial pathology versus cardiac related illness The times of the symptoms. EKG was collected was concerning for a posterior myocardial infarction. Approximately 15 minutes after the patient arrived to the emergency room EKG was reviewed and sent to the on-call electric meter repairer apprentice Dr. Wilburn. He reviewed the EKGs requested repositioning of the patient and reviewed the EKGs on the second event. This was all done within 35 minutes of arrival the patient had the emergency room. He felt that the symptoms and presentation are not consistent with acute myocardial infarction at this point wanted to have the patient return the troponins. Patient will be provided with aspirin here in the emergency room considering she does not have any chest pain at this time. Remainder the workup will include evaluation for cardiac pulmonary and endocrine related illness a could cause a shaking in blurry vision here today. Patient has not had any fall or head trauma. Vital signs remain stable we will continue monitor in emergency room is a disposition is completed. See detailed documentation of the physical exam, medical intervention, medical decision-making and disposition in the resident physician' s note. 1300 Troponin is unremarkable this time. EKGs remained stable. No recommendations from cardiology at this point. Chest x-ray and CT of the head were unremarkable. Patient will be admitted to the hospital this time for turning the troponins further evaluation. No acute neurologic deficits or issues noted this time chest x-ray does not show any signs of widening of the mediastinum or abnormality. Patient is otherwise clinically stable. With the on-call hospitalist and they had no other recommendations at this point. Patient does not require any other intervention aspirin will be given. Patient will be observed in emergency room until admission process is completed
[2017-10-24] MEDS ORDERED: Naloxone 0.4 MG/ML INJ IVP PRN (14:34)
[2017-10-24] MEDS ORDERED: Nitroglycerin 0.4 MG TAB.SUBL SL PRN (14:34)
--- NOTE | 2017-10-24 14:37 | Internal Med History&Physical ---
Date of Encounter: 10/24/17 Time of Encounter: 14:34 Internal Medicine - H&P: HPI Admitted From: Home Plans for Post Hospital Care: Home History of present illness: Ms. Herzog is a 42 year old female with history of chronic smoking half pack per day for 15 years, hypertension To ER with complaint of left chest pain started around 10:00 when she was outside and walk with her friend. She described her chest pain more like pressure for by 10 associated with lightheadedness, sweating radiating to back and did not get relieved by taking rest. Therefore her friend called EMS and brought to ER. In ER for dose of aspirin was given then it eased off pain but not completely alleviated. Initial troponin negative. Serial EKG was done with changes in ST and T-wave therefore ER physician consulted on-call food safety director Dr. Marie who advised to admit with cardiac enzyme and telemetry monitoring and does not recommend heart catheter. Patient had a stress test and echocardiogram done 2 months ago for the same problem. Your physician called on-call hospitalist to admit chest pain rule out ACS workup. During my evaluation patient complained to by 10 chest pain otherwise appears comfortable. Past Med Surg Social Fam HX - Past Medical History Medical history: non-contributory, hypertension Psychiatric history: no psych history - Social History Smoking Status: Current every day smoker Smokeless Tobacco Status: No Alcohol use: none Drug use: none Internal Medicine - H&P: Meds hydrOXYzine HCl [Hydroxyzine HCl] 25 mg PO HS PRN 08/05/17 [History] Metoprolol [Lopressor] 25 mg PO BID 10/24/17 [History] 3 Allergy/AdvReac Type Severity Reaction Status Date / Time Amoxicillin AdvReac Hives Verified 08/05/17 12:40 All Systems PM: A 10-system review of systems was performed and is negative for pertinent findings except as documented above in the HPI. - Constitutional Vitals: Temp Pulse Resp BP Pulse Ox 98.1 F 57 15 117/80 99 10/24/17 14:09 10/24/17 14:09 10/24/17 14:09 10/24/17 14:09 10/24/17 14:09 Exam: General appearance: No acute distress, A&O X 3. Friend at bedside Head exam: Atraumatic Eye exam: EOMI, PERRLA ENT exam: Moist oral mucosa Neck nontender, supple Respiratory exam: Clear to auscultation bilaterally Cardiovascular exam: Regular rate and rhythm, no systolic murmur Abdominal exam: Soft, nontender, nondistended, positive bowel sounds Extremities exam: No calf tenderness, no pedal edema Present: Skin-no rash, warm, dry, intact Neurological exam: Alert, awake, oriented 3, CN II-XII intact, no focal deficits. No facial droop. Normal speech. Normal gait. Romberg sign negative Internal Med - H&P Results - Labs CBC & Chem 7: 10/24/17 11:20 10/24/17 11:20 - Assessment and plan (1) Chest pain Current Visit: Yes Status: Acute Assessment and plan: Atypical chest pain but has risk factors such as smoking, hypertension. Initial troponin negative but had ST and T-wave changes in serial EKGs therefore food safety director got consulted in the ER. Will restart aspirin, lower beta en dose as patient had bradycardia, nitroglycerin when necessary, oxygen when necessary. Fasting lipid profile ordered. Recent distress and echo was done. Will wait for the cardiology opinion for further management Qualifiers: Chest pain type: unspecified Qualified Code(s): R07.9 - Chest pain, unspecified (2) EPIFANIO (acute kidney injury) Current Visit: Yes Status: Acute Assessment and plan: Normal creatinine level compared the left August 2017. Chest x-ray suggestive of interstitial edema but patient is not symptomatic or no sign of volume overload. No IV fluid at this time but BMP monitoring. Avoid nephrotoxic drug. (3) HTN (hypertension) Current Visit: Yes Status: Acute Assessment and plan: BP monitoring. Continue home medicine. Qualifiers: Hypertension type: essential hypertension Qualified Code(s): I10 - Essential (primary) hypertension (4) DVT prophylaxis Current Visit: No Status: Acute Assessment and plan: SCDs. - Time Spent With Patient Total time spent is greater than 50% in coordination of care (as documented) at patient's floor/unit and/or counseling patient:
[2017-10-25 03:17] LABS: Basophils % 0.4 %; Eosinophils # 0.1 K/mcL (0.0-0.6); Hematocrit 39.3 % (35.3-44.9); Hemoglobin 13.2 g/dL (11.5-15.4); Immature Granulocytes % 0.2 % (0-4); Lymphocytes # 2.5 K/mcL (0.6-4.6); Lymphocytes % 48.6 %; Mean Corpuscular HGB Conc 33.6 g/dL (31.6-35.5); Mean Corpuscular Hemoglobin 30.3 pg (28.0-33.3); Mean Corpuscular Volume 90.1 fL (83.0-100.0); Mean Platelet Volume 9.1 fL (9.4-12.4); Monocytes # 0.4 K/mcL (0.0-1.3); Monocytes % 6.9 %; Neutrophils # 2.1 K/mcL (1.6-8.9); Platelet Count 248 K/mcL (140-400); Red Blood Count 4.36 M/mcL (3.82-4.97); Red Cell Distribution Width 13.2 % (11.5-14.5); Segmented Neutrophils % 41.9 %
[2017-10-25 03:40] LABS: BUN/Creatinine Ratio 21 (6-26); Blood Urea Nitrogen 15 mg/dL (6-20); Carbon Dioxide 23 mEq/L (23-29); Chloride 109 mEq/L (98-107); Chol/HDL Ratio 3.6 (0-4.9); Cholesterol 182 mg/dL (< 200); Glucose 94 mg/dL (70-105); HDL Cholesterol 50 mg/dL (40-59); LDL Cholesterol,Calculated 108 mg/dL (0-99); Osmolality,Calculated 287 (280-300); Potassium 3.7 mEq/L (3.5-5.1); Sodium 138 mEq/L (136-145); Triglycerides 121 mg/dL (< 150); eGFR For African Americans > 60 (> 60); eGFR For Non-African Americans > 60 (> 60)
[2017-10-25] MEDS: Aspirin 81 MG TAB.CHEW PO SCH (08:14)
--- NOTE | 2017-10-25 11:22 | Cardiology Consult Note ---
<Marcus Ruth R - Last Filed: 10/25/17 13:42> Date of Encounter: 10/25/17 Time of Encounter: 09:00 Assessment and Plan (1) Chest pain Current Visit: Yes Status: Acute Chest pain is more atypical, but pt does not provide a clear history - troponin negative x4 Negative stress and unremarkable TTE in 08/[address] EKG with concerns of ST depression and T wave inversions - very similar to previous EKG in Aug Cardiac Risk: HTN, tobacco use Continue BB, nitro sl PRN Due to EKG changes - will proceed with [facility] for further evaluation Discussed case with Dr. Goetz - final recommendations after his evaluation Qualifiers: Chest pain type: unspecified Qualified Code(s): R07.9 - Chest pain, unspecified (2) HTN (hypertension) Current Visit: Yes Status: Acute Normotensive. Continue BB Qualifiers: Hypertension type: essential hypertension Qualified Code(s): I10 - Essential (primary) hypertension Discussion w patient/family: The assessment and plan as outlined above was discussed with the patient and/or family members who expressed understanding and agreement. All questions were answered. Thank you for involving us in the care of your patient. Please call with any questions. History of Present Illness Consult date: 10/24/17 Requesting physician: Chiqui Andrade Consult reason: chest pain, EKG concerns Chief complaint: chest pain, dizziness, blurred vision History of present illness: Ms. 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 She reports that yesterday she was upset at home and went outside to relax. At this time she began having some light-headedness, intermittent blurred vision, back pain, and then some chest "pulling"/pain. This episode lasted about 5 minutes and resolved after she laid down to rest. She does report that she might have had some dyspnea and nausea as well. Her story has seemed to change some since her evaluation in the ED. She reports that she has had intermittent chest pain for the past several months occurring about once every couple weeks. She doesn't notice there to be any particular pattern to her pain. She does walk to lunch every day and has been exercising and does not have symptoms with exertion. She was recently admitted to the hospital for similar symptoms with a negative work- up at that time. She denies any current symptoms. Prior Cardiac Imaging: - Stress 08/06/17: negative for ischemia or infarct, EF 67% - TTE 08/05/17: LVEF 60-65%, normal LV, indeterminate diastolic function, normal RV, mild MR, mild-mod LA, mild pulm HTN Past Med Surg Social Fam HX - Past Medical History Medical history: non-contributory, hypertension Psychiatric history: no psych history - Social History Smoking Status: Current every day smoker Smokeless Tobacco Status: No Alcohol use: none Drug use: none - Family History Mother Living Status: Hx Family Cardiac Disorders: Yes (HTN) Hx Family Cancer: Yes (breats cancer) Hx Family Endocrine Disorder: Yes (DM) Father History Unknown: Yes Medications and Allergies hydrOXYzine HCl [Hydroxyzine HCl] 25 mg PO HS PRN 08/05/17 [History] Metoprolol [Lopressor] 25 mg PO BID 10/24/17 [History] 3 Allergy/AdvReac Type Severity Reaction Status Date / Time Amoxicillin AdvReac Hives Verified 08/05/17 12:40 All Systems Review: The remainder of the systems were reviewed and are negative Physical Examination Vital Signs, Last 4 Hours Temp Pulse Resp BP Pulse Ox 10/25/17 10:56 99.0 F 88 16 98/54 95 10/25/17 07:40 98.3 F 74 16 102/62 96 General: Conversant, No Apparent Distress HEENT: Atraumatic, Normocephaly, Mucus Membranes Moist Neck: No JVD, Normal carotid pulses Cardiac: Reg Rate and Rhythm, Normal S1 and S2, No Murmur Lungs: Normal Breath Sounds, No Wheeze, Rales, Rhonchi Neuro: Alert and responsive, No focal deficits noted Abdomen: Soft, Non-Tender Skin: No rashes noted on visualized skin Musculoskeletal: Other (Chest wall tenderness, but reports that it is different that her chest pain) Extremities: No Clubbing, No Cyanosis, No Edema, Normal Pulses Results 10/25/17 03:03 10/25/17 03:03 Lab Results 10/24/17 10/24/17 10/24/17 17:15 17:15 23:32 WBC Hgb Hct Plt Count Sodium Potassium Chloride Carbon Dioxide BUN Creatinine Glucose Calcium Troponin I < 0.03 < 0.03 TSH 1.059 10/25/17 10/25/17 10/25/17 03:03 03:03 03:03 WBC 5.1 Hgb 13.2 Hct 39.3 Plt Count 248 Sodium 138 Potassium 3.7 Chloride 109 H Carbon Dioxide 23 BUN 15 Creatinine 0.72 Glucose 94 Calcium 9.0 Troponin I < 0.03 TSH Consult Discharge Plan - Plan Referrals: Edgar Aguilera MD [Primary Care Provider] - <Edgar Goetz - Last Filed: 10/25/17 14:55> Date of Encounter: 10/25/17 - Attending Attestation I examined this patient and my medical decision-making was reviewed with the Resident Physician. I agree with the documented findings, disposition and treatment plan as described except to the extent set forth below. Atypical and typical features of cheat pain . Previous cardiac workup negative but EKG concerning, discussed pursuing left heart cath. Assessment and Plan Discussion w patient/family: The assessment and plan as outlined above was discussed with the patient and/or family members who expressed understanding and agreement. All questions were answered. Thank you for involving us in the care of your patient. Please call with any questions. History of Present Illness History of present illness: Ms. Herzog is a 42 year old female All Systems Review: The remainder of the systems were reviewed and are negative Physical Examination Vital Signs, Last 4 Hours Temp Pulse Resp BP Pulse Ox 10/25/17 10:56 99.0 F 88 16 98/54 95 Results 10/25/17 03:03 10/25/17 03:03 Lab Results 10/24/17 10/24/17 10/24/17 17:15 17:15 23:32 WBC Hgb Hct Plt Count Sodium Potassium Chloride Carbon Dioxide BUN Creatinine Glucose Calcium Troponin I < 0.03 < 0.03 TSH 1.059 10/25/17 10/25/17 10/25/17 03:03 03:03 03:03 WBC 5.1 Hgb 13.2 Hct 39.3 Plt Count 248 Sodium 138 Potassium 3.7 Chloride 109 H Carbon Dioxide 23 BUN 15 Creatinine 0.72 Glucose 94 Calcium 9.0 Troponin I < 0.03 TSH
--- NOTE | 2017-10-25 12:09 | Internal Med Progress Note ---
Date of Encounter: 10/25/17 Time of Encounter: 12:05 - Assessment and plan (1) Chest pain Current Visit: Yes Status: Acute Assessment and plan: Atypical chest pain but has risk factors such as smoking, hypertension. Initial troponin negative but had ST and T-wave changes in serial EKGs therefore dry wall installer got consulted in the ER. Will restart aspirin, lower beta en dose as patient had bradycardia, nitroglycerin when necessary, oxygen when necessary. Fasting lipid profile ordered. Recent distress and echo was done. Cardiology recommends [facility] Qualifiers: Chest pain type: unspecified Qualified Code(s): R07.9 - Chest pain, unspecified (2) EPIFANIO (acute kidney injury) Current Visit: Yes Status: Acute Assessment and plan: Creatinine back at baseline. Chest x-ray suggestive of interstitial edema but patient is not symptomatic or no sign of volume overload. will cont tot monitor avoid nephrotoxins (3) HTN (hypertension) Current Visit: Yes Status: Acute Assessment and plan: BP monitoring. Continue home medicine. Qualifiers: Hypertension type: essential hypertension Qualified Code(s): I10 - Essential (primary) hypertension (4) DVT prophylaxis Current Visit: No Status: Acute Assessment and plan: SCDs. - Time Spent With Patient Total time spent is greater than 50% in coordination of care (as documented) at patient's floor/unit and/or counseling patient: - Subjective Interval history: I examined the patient at bedside Denies any pain or discomfort at this time, seen by cardiology awaiting recommendations - Constitutional Vitals: Temp Pulse Resp BP Pulse Ox 99.0 F 88 16 98/54 95 10/25/17 10:56 10/25/17 10:56 10/25/17 10:56 10/25/17 10:56 10/25/17 10:56 General appearance: Present: A&O X 3 - Head Head exam: Present: atraumatic, normocephalic - Eye Eye exam: Present: PERRL, conjuntiva pink, sclera anicteric Pupils: Present: PERRL - Neck Neck exam general surgery: Present: supple, trachea midline. Absent: lymphadenopathy - Respiratory Respiratory exam: Present: CTAB. Absent: accessory muscle use, rales, rhonchi, wheezes - Cardiovascular Cardiovascular exam: Present: RRR, +S1, +S2. Absent: diastolic murmur, gallop, rubs, systolic murmur - GI/Abdominal GI/Abdominal exam: Present: normal bowel sounds, soft, no peritoneal signs. Absent: distended, tenderness - Extremities Exam Extremities exam: Present: warm, radial pulses palpable and symmetrical. Absent : calf tenderness, cyanotic, pedal edema - Neurological Exam Neurological exam: Present: CN II-XII intact, oriented X3, no focal deficits. Absent: pronater drift, facial droop, speech deficit - Skin Skin exam: Present: dry, intact Internal Medicine: Result - Labs CBC & Chem 7: 10/25/17 03:03 10/25/17 03:03 Labs: Short CBC 10/25/17 Range/Units 03:03 WBC 5.1 (4.3-11.1) K/mcL Hgb 13.2 (11.5-15.4) g/dL Hct 39.3 (35.3-44.9) % Plt Count 248 (140-400) K/mcL Neutrophils # 2.1 (1.6-8.9) K/mcL BMP 10/25/17 03:03 Sodium 138 Potassium 3.7 Chloride 109 H Carbon Dioxide 23 BUN 15 Creatinine 0.72 Glucose 94 Calcium 9.0 Cardiac Enzymes 10/24/17 10/24/17 10/25/17 Range/Units 17:15 23:32 03:03 Troponin I < 0.03 < 0.03 < 0.03 (< 0.04) ng/mL - ABG Interpretation ABG results: PT/INR, D-dimer PT 10.4 Seconds (9.4-12.1) 10/24/17 11:10 Consult Discharge Plan - Plan Referrals: Edgar Aguilera MD [Primary Care Provider] -
[2017-10-25] MEDS ORDERED: Heparin 1,000 UNITS/500 mL 500 ML ONE (13:13)
[2017-10-25] MEDS ORDERED: 0.9 % Sodium Chloride 1,000 ML ONE (13:13)
[2017-10-25] MEDS ORDERED: *HR* Heparin 10,000 UNIT/10 ML VIAL ONE (13:13)
[2017-10-25] MEDS ORDERED: ISOVUE-370 200 ML INFUS..BTL IV ONE (13:14)
[2017-10-25] MEDS ORDERED: Nitroglycerin 1,000 MCG/10 ML VIAL IV ONE (13:14)
--- NOTE | 2017-10-25 14:03 | Pre-Sedation Evaluation ---
Pre-sedation evaluation - Pre-sedation checklist Date of procedure: 10/25/17 Procedure: left heart cath Recent Vitals: Last Vital Signs Temp 99.0 F 10/25/17 10:56 Pulse 88 10/25/17 10:56 Resp 16 10/25/17 10:56 BP 98/54 10/25/17 10:56 Pulse Ox 95 10/25/17 10:56 H&P (including ROS) documented in medical record: Yes Previous reaction to sedatives/anesthetics: No Dietary Status: unknown Airway Assessment: Patient can open mouth completely, TMJ function normal, Micrognathia (under-bite, receding chin) absent, Neck with adequate range of motion Dentition: dentures removed Possible difficult airway: No ASA Classification *see protocol: CLASS II-Mild systemic disease Plan of Care: Pt appropriate candidate for procedure/moderate/conscious sedation , Risks/benefits of procedure/sedation discussed w/ patient/family
[2017-10-25] MEDS ORDERED: *HR* Midazolam HCl 2 MG/2 ML VIAL ONE (14:07)
--- NOTE | 2017-10-25 14:45 | Invasive Diagnostic Lab Proc ---
Name: Michelle Herzog Date of Study: 10/25/2017 Date: 1975 Ht: 61.8in Medical Record#: [id number] Age: 42 Wt: 143.30lb Gender: Female BSA: 1.66 Order #: [id number] BMI: 26.37 Physicians Procedure Physician: Ani Goetz MD, [facility] Referring MD: Referring MD: Staff Name Position Time In Sites, Ashley RT (R) Scrub 02:05 PM Hazel Madden RT (R) Monitor 02:05 PM Amaya Oneil RN Assembly Line Leader 02:05 PM Indications Indication Unstable Angina Coronary Artery Disease suspected Procedures Performed Procedure L HRT ARTERY/VENTRICLE ANGIO Pre-Procedure Checklist Informed consent is complete signed and on chart. H&P is on chart. ID band is on and ID verified with patient. Patient NPO for procedure The procedure was described for the patient and questions were answered. Blood Pressure: 118/74 ECG is on chart. Rhythm: NSR Plan of Care Patient will tolerate the procedure without complications. Adequate level of comfort will be maintained. Hemodynamics will remain stable Patient will recover from procedure without complications. Respiratory function will be maintained. Cardiac rhythm will remain stable. Patient temperature will be maintained. Patient and/or family have verbalized understanding of the procedure. Patient Education Chief Complaint/Reason for Test: Cardiac Cath Developmental Category: Adult (18-64 years) Developmentally Appropriate for Age: Yes Learning Barriers: None Education Needs: Procedure Education Method: Verbal Information Taught: Cardiac Cath Educational Evaluation: Able to repeat information Intravenous Access Time IV Size Location DC'd Fluid/Drip Rate Units RN 02:09 PM Started with 20g 1 1/4" Rt Antecubital 0.9NaCl ml/hr Allergies Amoxicillin Vital Signs Time BP (mmHg) HR (bpm) O2 Sat. RR (bpm) LOC 02:08 PM 118 / 74 61 99 % 16 5 = Fully awake and oriented or at pre-proc level 02:08 PM / % 4 = Oriented but drowsy 02:05 PM 118 / 74 65 97 % 02:10 PM 118 / 71 65 99 % 02:15 PM 128 / 100 80 97 % 02:20 PM 124 / 83 88 99 % 02:25 PM 118 / 80 88 96 % 02:30 PM 119 / 79 85 98 % Procedural Medications Time Medication Dose Units Method Given By 02:07 PM Oxygen 2 L/min nasal cannula Amaya Oneil RN 02:07 PM Versed 2 mg Intravenous Amaya Oneil RN 02:09 PM Benadryl 25 mg Intravenous Amaya Oneil RN 02:18 PM Lidocaine 2% 17 ml Subcutaneous Ani Goetz MD, [facility] Vel Score Preprocedure Postprocedure Activity 2- Moves 4 extremities sustained head lift Activity 2- Moves 4 extremities sustained head lift Circulation 2- SBP +/= 20 points of pre-anesthetic level Circulation 2- SBP +/= 20 points of pre-anesthetic level Consciousness 2- Awake and alert oriented x 3 Consciousness 2- Awake and alert oriented x 3 O2 Saturation 2- Able to maintain O2 satruation of 92% on room air O2 Saturation 2- Able to maintain O2 satruation of 92% on room air Respiratory 2- Able to deep breathe and cough well Respiratory 2- Able to deep breathe and cough well Total Score 10 Total Score 10 Contrast Agent: Isovue Diagnostic Contrast: 44 ml Total Contrast: 44 ml Fluoro Dose: 104 mGy Procedure Log Time Note Enter By 01:59 PM CathStat 02:04 PM Vitals capture started with the following parameters, Patient=Adult, Interval=5 min, Initial Cbntglvd=349 mmHg, Deflation Rate=5 mmHg, Cuff placed on Right Arm 02:04 PM Recorded ECG: HR=62 Condition=Condition 1 02:05 PM 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 tsites 02:05 PM Procedure start 14:05 tsites 02:05 PM Ashley Marrero RT (R) Position: Scrub Time in: 14:05 tsites 02:05 PM HR=65 bpm, RAMO=127/74 mmhg, SpO2=97.0 % 02:05 PM Hazel Madden RT (R) Position: Monitor Time in: 14:05 tsites 02:06 PM Amaya Oneil RN Position: Assembly Line Leader Time in: 14:05 tsites 02:06 PM Patient charges- Angio tray pack, Navilyst 3mm J, Pulse Oximetry and ACIST tubing and transducer tsites 02:06 PM Hair removed from procedure site in holding area using clippers. Bilateral groin prepped with Chloraprep by Hazel Madden RT (R), then patient was draped. Skin intact. tsites 02:07 PM Time: 14:07 Oxygen on at 2 L/min per nasal cannula by Amaya Oneil RN [email or web address] 02:08 PM Time: 14:07 Versed 2 mg Intravenous Given by Amaya Oneil RN [email or web address] 02:08 PM Time: 14:08 Patient comfortable and pain free: Yes [email or web address] 02:08 PM Time: 14:08LOC: 5 = Fully awake and oriented or at pre-proc level [email or web address] 02:09 PM Time: 14:09 Benadryl 25 mg Intravenous Given by Amaya Oneil RN [email or web address] 02:10 PM HR=65 bpm, XVBG=303/71 mmhg, SpO2=99.0 % 02:13 PM Pressure channel 1 zeroed. 02:15 PM HR=80 bpm, FCYE=811/100 mmhg, SpO2=97.0 %, Comment=NSR 02:17 PM Time out performed according to hospital policy elle 02:19 PM Time: 14:18 17 ml Lidocaine 2% to right groin Subcutaneous Given by Ani Goetz MD, [facility] 02:19 PM Access obtained by percutaneous puncture. 5Fr 10cm Terumo [place] sheath placed in right Femoral artery. [id number] [email or web address] 02:19 PM 0.035 145cm Navilyst 3mmJ wire [id number] [email or web address] 02:19 PM 5Fr FL 4 catheter inserted over the wire [email or web address] 02:20 PM LCA angiography performed in multiple views. [email or web address] 02:20 PM HR=88 bpm, ULGL=394/83 mmhg, SpO2=99.0 %, Comment=NSR 02:21 PM Recorded Pressure: Ao, HR=79, Condition=Condition 1 (Aorta) Ao 113/88/101 02:23 PM Catheter removed [email or web address] 02:23 PM 5Fr FR 4 catheter inserted over the wire [facility] [email or web address] 02:23 PM RCA angiography performed in multiple views. [email or web address] 02:23 PM Time: 14:08 Patient comfortable and pain free: Yes [email or web address] 02:23 PM Time: 14:08LOC: 4 = Oriented but drowsy [email or web address] 02:25 PM Recorded Pressure: Ao, HR=82, Condition=Condition 1 (Aorta) Ao 115/94/104 02:25 PM Catheter removed [email or web address] 02:25 PM 5Fr Pigtail catheter inserted over the wire [facility] [email or web address] 02:25 PM HR=88 bpm, GIKD=963/80 mmhg, SpO2=96.0 %, Comment=NSR 02:25 PM Catheter selectively placed in left ventricle [email or web address] 02:26 PM Bolus angiogram of left Ventricle complete: 8 ml/sec for a total of 24 mls [email or web address] 02:26 PM Pressure channel 1 zero failed. 02:26 PM Pressure channel 1 zero failed. 02:26 PM Pressure channel 1 zeroed. 02:26 PM Recorded Pressure: LV, HR=84, Condition=Condition 1 (Left Ventricle) LV 92/10/13 02:27 PM Recorded Pressure: LV, Ao, HR=80, Condition=Condition 1 (Left Ventricle) LV 372/106/372, (Aorta) Ao 102/46/70 02:27 PM Catheter removed [email or web address] 02:27 PM Bolus angiogram of right Femoral complete: 4 ml/sec for a total of 7 mls [email or web address] 02:27 PM Coronary Dominance: Co-dominant [email or web address] 02:28 PM Procedure completed at 14:28 [email or web address] 02:28 PM Did you address ALOK flow and Dominance? Yes [email or web address] 02:28 PM Sign out completed: Radiation Dose 103.94 mGy Fluoro Time: 2.6 Isovue 370 - 200ml contrast 44 ml given by Ani Goetz MD, [facility]. Complications: NoneCardiac Rehab Consult needed: NoConfirmed administered medications: Yes [email or web address] 02:29 PM Isovue 370 - 200ml,1 Bottle(s) used. [email or web address] 02:29 PM Estimated Blood Loss: minimal [email or web address] 02:29 PM Post ECG NSR [email or web address] 02:29 PM Post Blood Pressure 118/80 [email or web address] 02:29 PM 14:29 Post Pulses Bilateral DP & PT 2+ [email or web address] 02:29 PM Information taught Cardiac Cath [email or web address] 02:29 PM Education needs Procedure, Plan of Care, and Disease Process [email or web address] 02:29 PM Learning barriers :None [email or web address] 02:29 PM Education Methods Verbal [email or web address] 02:29 PM Education evaluation Able to repeat information [email or web address] 02:30 PM Delay to floor No [email or web address] 02:30 PM HR=85 bpm, NNVJ=131/79 mmhg, SpO2=98.0 %, Comment=NSR 02:30 PM Family placed in not available. [email or web address] 02:30 PM Complications: None [email or web address] 02:30 PM Fluoro Time: 2.6 [email or web address] 02:30 PM Isovue 370 - 200ml contrast [address] Meghann Goetz. [email or web address] 02:31 PM Radiation Dose 103.94 mGy [email or web address] 02:31 PM Site status No bleeding/hematoma - Rt Groin as reported by Sites, Ashley RT (R) at 14:31 [email or web address] 02:31 PM Opsite applied [email or web address] 02:34 PM Report given to Lakeshia BOYCE Pt taken to Room #36. 14:33 [email or web address] 02:34 PM Patient out of room: 14:34 [email or web address] Complications Complication None None Hemodynamics Pressures Site Systolic/A Wave Diastolic/V Wave Mean AO 113 88 101 AO 115 94 104 LV 92 10 13 LV 372 106 372 AO 102 46 70 Post Procedure Information Blood Pressure: 118/80 mmHg Rhythm: NSR Post procedural instructions were given Closure Device Time Device Success/Fail 10/25/2017 2:31:00 PM MynxGrip Successful Site Checks Time Location Status Staff Sheath In? Note 02:31 PM Rt Groin No bleeding/hematoma Sites, Ashley RT (R) Pulses Time Site Pre-Procedure Post-Procedure Note Bilateral DP & PT 2+ Bilateral radial 2+ 2:29:00 PM Bilateral DP & PT 2+ Updated by Hazel Madden, RT(R) on 10/25/2017 2:36:53 PM electronically signed on 10/25/2017 2:39:40 PM with status of Final
--- NOTE | 2017-10-25 15:38 | Event Note ---
Date of Encounter: 10/25/17 Time of Encounter: 15:36 - Cardiology Event Note Per discusion with Dr.Jennifer Goetz, no intervention on [facility]. Cardiology will sign off.
[2017-10-25] MEDS ORDERED: *HR* HYDROcodone/Acet 5/325 mg TABLET PO PRN (20:47)
[2017-10-25] MEDS: Acetaminophen 325 MG TABLET PO PRN (21:26)
[2017-10-26] MEDS: Acetaminophen 325 MG TABLET PO PRN ×2 (03:34→11:41)
[2017-10-26] MEDS: Aspirin 81 MG TAB.CHEW PO SCH (08:28)
--- NOTE | 2017-10-26 10:31 | Discharge Summary ---
- NOTES TO OUTPATIENT PROVIDER Notes to Outpatient Provider: [facility]- no intervention, decreased metoprolol down to 12.5 BID dt hypotension Orders not resulted at time of discharge: Pending orders 10/25/17 06:00 ECG 12 lead ECG [ECG] AM 0600 Date of Encounter: 10/26/17 Time of Encounter: 10:24 - Discharge Diagnosis (1) Chest pain Priority: Primary Status: Acute Qualifiers: Chest pain type: unspecified Qualified Code(s): R07.9 - Chest pain, unspecified (2) EPIFANIO (acute kidney injury) Priority: Secondary Status: Acute (3) HTN (hypertension) Priority: Secondary Status: Chronic Qualifiers: Hypertension type: essential hypertension Qualified Code(s): I10 - Essential (primary) hypertension Hospital course: Ms. Herzog is a 42 year old female past medical hx of HTN tobacco use recovery from drug use. She was admitted for cp after she had been in an argument , she went outside to relax when she began to expereince lightheadiness intermitten blurred vision back pain and chest "pulling"/pain. The episode lasted approx 5 min and resolved on own. She has had intermitten cp for past several months previous stress 08/06/17 negative for ischemia or infarct EF 67% TTE 08/05/17 EF 60-655 normal LV indeterminate diastolic function normal RV mild MR mild mod NC mild pulm HTN. She was seen by Cardiology and underwent a left heart cath which was normal and no intervention was performed. I reviewed findings with patient, and advised lifestyle changes including blood pressure control and smoking cessation. Patient verbalized understanding. Upon initial presentation she did have an EPIFANIO creatinine 1.21 this returned back to baseline after IV fluids Advised patient to continue home medications and follow up with PCP and cardiology as outpatient. Verbalized understanding Vital signs are stable and the patient is ready for discharge. - Time Spent with Patient Total time spent providing and/or coordinating discharge services: - Discharge Medications Prescriptions: Aspirin 81 mg PO DAILY #30 tab.chew Metoprolol [Lopressor] 12.5 mg PO BID #30 tablet Home Medications: hydrOXYzine HCl [Hydroxyzine HCl] 25 mg PO HS PRN 08/05/17 [History] Metoprolol [Lopressor] 25 mg PO BID 10/24/17 [History] Aspirin 81 mg PO DAILY #30 tab.chew 10/26/17 [Rx] Metoprolol [Lopressor] 12.5 mg PO BID #30 tablet 10/26/17 [Rx] Allergies/Adverse Reactions: 3 Allergy/AdvReac Type Severity Reaction Status Date / Time Amoxicillin AdvReac Hives Verified 08/05/17 12:40 Date of admission: 10/24/17 13:18 Primary care physician: Edgar Aguilera MD Consults: 10/24/17 14:34 Consult to Nurse Navigator [CONS] Routine Comment: 10/24/17 14:40 Consult to Cardiology [CONS] Routine Comment: Consulting Provider: Cardiology Cynthia Reason for Consult: Chest pain rule out ACS. Change in EKG Call Completed: Yes Discharging clinician: Maren Manrique Anticipated date of discharge: 10/26/17 - Constitutional Vitals: Temp Pulse Resp BP Pulse Ox 98.3 F 73 14 101/68 95 10/26/17 06:48 10/26/17 08:20 10/26/17 06:48 10/26/17 08:20 10/26/17 06:48 General appearance: Present: A&O X 3 - Head Head exam: Present: atraumatic, normocephalic - Eye Eye exam: Present: PERRL, conjuntiva pink, sclera anicteric Pupils: Present: PERRL - Neck Neck exam general surgery: Present: supple, trachea midline. Absent: lymphadenopathy - Respiratory Respiratory exam: Present: CTAB. Absent: accessory muscle use, rales, rhonchi, wheezes - Cardiovascular Cardiovascular exam: Present: RRR, +S1, +S2. Absent: diastolic murmur, gallop, rubs, systolic murmur - GI/Abdominal GI/Abdominal exam: Present: normal bowel sounds, soft, no peritoneal signs. Absent: distended, tenderness - Extremities Exam Extremities exam: Present: warm, radial pulses palpable and symmetrical. Absent : calf tenderness, cyanotic, pedal edema - Neurological Exam Neurological exam: Present: CN II-XII intact, oriented X3, no focal deficits. Absent: pronater drift, facial droop, speech deficit - Skin Skin exam: Present: dry, intact - Patient Status Disposition: Home, Self-Care Condition: Good - Discharge Instructions Instructions: Chest Pain (DC), Left Heart Catheterization (DC) Follow Up With: Ani Goetz MD [Partnered Physician] - (Cardiology office will contact you with follow up appointment.) Edgar Aguilera MD [Primary Care Provider] - (Please call office to schedule follow up appointment in 5-7days.) Forms: ED Satisfaction Letter Additional Instructions: Cynthia cardiology - Diet and Activity Activity: increase activity as tolerated Diet: advance to your usual diet
[2017-10-26 11:27] VITALS: BP 94/58
[2017-10-26 11:55] LABS: BUN/Creatinine Ratio 16 (6-26); Blood Urea Nitrogen 13 mg/dL (6-20); Calcium 9.1 mg/dL (8.6-10.3); Carbon Dioxide 24 mEq/L (23-29); Chloride 107 mEq/L (98-107); Glucose 88 mg/dL (70-105); Osmolality,Calculated 280 (280-300); Potassium 3.9 mEq/L (3.5-5.1); Sodium 135 mEq/L (136-145); eGFR For African Americans > 60 (> 60); eGFR For Non-African Americans > 60 (> 60)
--- NOTE | 2017-10-26 15:41 | Electrocardiograph Report ---
[address] [place] [address] Test Date: 2017-10-24 Pat Name: Michelle Herzog Department: 103 Room: 3B36 Gender: F Human Resources Team Member: Giancarlo : 1975 Requested By: Gris Perera Order Number: [id number] Reading MD: Ani Goetz Measurements Intervals [place] Rate: 56 P: 49 VT: 154 QRS: 19 QRSD: 93 T: -32 QT: 448 QTc: 441 Interpretive Statements [address] BR[address] DEVIATION AND MODERATE T-WAVE ABNORMALITY, CONSIDER ANTEROLATERAL ISCHEMIA [- 0.1+ mV T WAVE IN V3-V6] Electronically Signed On 10-26-2017 15:39:21 EDT by Ani Goetz
--- NOTE | 2017-10-26 16:00 | Electrocardiograph Report ---
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
== END 2017-10-26 12:45 | disposition home or self-care (01) ==
LOC: EMEROO 10:41 → 3BNU 10:41
PROVIDERS: ADMIT Student in an Organized Health Care Education/Training Program; ATTEND Student in an Organized Health Care Education/Training Program